=== PATIENT | male | born 1970 | race Caucasian/White ===

== ENCOUNTER → 2017-11-13 | Outpatient (CLI) | payer OTHER | LOC: FIMAGING 14:01 | PROVIDERS: ATTEND Family Medicine | DX: Z09 Encounter for follow-up examination after completed treatment for conditions other than malignant neoplasm (principal); R19.00 Intra-abdominal and pelvic swelling, mass and lump, unspecified site ==

== ENCOUNTER 2018-07-28 17:42 | Emergency (ER) | payer OTHER ==
--- NOTE | 2018-07-28 18:03 | EDPHY ---
H & P Stated Complaint: syncope, facial abrasions - Personal History Current Tetanus/Diphtheria Vaccine: Yes Current Tetanus Diphtheria and Acellular Pertussis (TDAP): Yes - Medical/Surgical History Hx Asthma: No Hx Chronic Respiratory Disease: No Hx Diabetes: No Hx Cardiac Disease: No Hx Renal Disease: No Hx Cirrhosis: No Hx Alcoholism: No Hx HIV/AIDS: No Hx Splenectomy or Spleen Trauma: No Other PMH: hyperlipidemia, SBO, - Social History Smoking Status: Never smoked Time Seen by Provider: 07/28/18 18:02 Constitutional: Initial Vital Signs Temperature (C) 36.5 C 07/28/18 17:46 Heart Rate 54 L 07/28/18 17:46 Respiratory Rate 16 07/28/18 17:46 Blood Pressure 103/56 L 07/28/18 17:46 O2 Sat (%) 97 07/28/18 17:46 O2 Delivery Mode Room Air Allergies/Adverse Reactions: No Known Allergies Allergy (Unverified 07/28/18 17:46) Home Medications: Medication Instructions Recorded Bisacodyl 07/28/18 Lipitor 07/28/18 Medical Decision Making Procedures: Procedure: Laceration repair with tissue adhesive Requested by Dr Contreras to perform wound closure Verbal consent was obtained from the patient. The chin laceration was anesthetized with 1% lidocaine with epinephrine achieving localized anesthesia. The wound was scrubbed and explored to its base with a gloved finger. No foreign body seen, no foreign bodies palpated. There were no deep structures involved. The wound was repaired with tissue adhesive. The procedure was performed by myself. Patient has been informed that scarring will occur, although efforts have been made to minimize this. (Rain Contreras) ED Course/Re-evaluation: CHIEF COMPLAINT: Syncope HISTORY OF PRESENT ILLNESS: This patient is a 48 year old male who presents following a syncopal event this evening. He has history of twisted bowels and small bowel obstruction as an and undergoes upper GI imaging every 4 years to monitor this. Today, he was prepping for his colonoscopy and took 4 Dulcolax at 3pm. Around 5pm, he was driving and noticed he was getting lightheaded, so he pulled over and stopped. He got out of the car and took about four steps, then had a syncopal event and fell forward onto his face. This was witnessed by his brother. He sustained several abrasions and a laceration to his face. He endorses some stiffness in his left wrist and hand, but denies any swelling or pain with ROM. The patient endorses history of syncope in the past associated with gastrointestinal discomfort. He denies fever, chest pain, shortness of breath, palpitations, vomiting, diarrhea, numbness or paresthesias in his extremities, or other associated symptoms. REVIEW OF SYSTEMS: A comprehensive 10 system review of systems is otherwise negative aside from elements mentioned in the history of present illness and medical decision making. PHYSICAL EXAM: HR, BP, O2 Sat, RR. Temp noted General Appearance: Alert, well hydrated, appropriate, and non-toxic appearing. Head: Atraumatic without scalp tenderness or obvious injury Eyes: Pupils equal, round, reactive to light and accommodation, EOMI, no trauma , no injection. Ears: Clear bilaterally, no perforation, normal landmarks Nose: Atraumatic, no rhinorrhea, clear. Throat: There is no erythema or exudates, no lesions, normal tonsils, mucus membranes moist. Neck: Supple, 2+ carotid upstroke, nontender, no lymphadenopathy. Respiratory: No retractions, no distress, no wheezes, and no accessory muscle use. Lungs are clear to auscultation bilaterally. Cardiovascular: Regular rate and rhythm, no murmurs, rubs, or gallops. Bilateral carotid, radial, dorsalis pedis, and posterior tibial pulses intact. Good capillary refill all extremities. Gastrointestinal: Abdomen is soft, nontender, non-distended, no masses, no rebound, no guarding, no peritoneal signs. Musculoskeletal: Normal active ROM of all extremities, atraumatic. Neurological: Alert, appropriate, and interactive. The patient has normal DTRs and non-focal cranial nerves, motor, sensory, and cerebellar exam. Skin: No rashes, good turgor, no nodules on palpation. Past medical history: Small bowel obstruction. Past surgical history: Remote history of bowel surgery as an . Family history: Noncontributory. Social history: Brother at bedside. . Lives in [place]. DIAGNOSTICS/PROCEDURES/CRITICAL CARE TIME: The 12 lead EKG was interpreted by myself. Sinus rhythm. Normal QT interval. See hard copy and/or "tracemaster" electronic copy for interpretation. DIFFERENTIAL DIAGNOSIS: The differential diagnosis for the patient's syncope included but was not limited to vasovagal syncope, arrhythmia, dehydration, cardiogenic causes, neurogenic causes, and blood loss. MEDICAL DECISION MAKIN48 y/o male presents with facial abrasions and a laceration to his chin sustained during a syncopal event this evening. Plan for EKG, labs including CBC , chemistries, troponin. Plan to administer 1L IV NS for symptom relief. Symptoms are consistent with vasovagal syncope. He is currently well-appearing. EKG shows normal sinus rhythm, normal QT interval. Laboratory studies largely unremarkable. 18:45 Reassessed. Discussed laboratory results. Plan to clean and repair the patient's facial injuries under standard ED protocol. Laceration repaired by LIO Larson. See procedure note above. Reassessed patient. He is feeling better. Plan to discharge patient home in good condition. Follow up and return precautions discussed. He will proceed with his colonoscopy as scheduled. He will return for suture removal in five days. He is comfortable with this plan. (Gary Contreras) - Data Points Laboratory Results: Laboratory Results 07/28/18 18:00 07/28/18 18:00 07/28/18 07/28/18 07/28/18 18:10 18:04 18:00 WBC RBC Hgb POC Hgb 15.0 gm/dL gm/dL (13.7-17.5) Hct POC Hct 44 % % (40-51) MCV MCH MCHC RDW Plt Count MPV Neut % (Auto) Lymph % (Auto) [place] % (Auto) Eos % (Auto) Baso % (Auto) Nucleat RBC Rel Count Absolute Neuts (auto) Absolute Lymphs (auto) Absolute Monos (auto) Absolute Eos (auto) Absolute Basos (auto) Absolute Nucleated RBC Immature Gran % Immature Gran # POC Sodium 140 mEq/L mEq/L (135-145) Sodium 136 mEq/L mEq/L (135-145) POC Potassium 3.1 mEq/L L mEq/L (3.3-5.0) Potassium 3.5 mEq/L mEq/L (3.3-5.0) POC Chloride 102 mEq/L mEq/L (97-110) Chloride 101 mEq/L mEq/L (97-110) Carbon Dioxide 23 mEq/l mEq/l (22-31) Anion Gap 12 mEq/L mEq/L (8-16) POC BUN 15 mg/dL mg/dL (7-23) BUN 15 mg/dL mg/dL (7-23) Creatinine 1.0 mg/dL mg/dL (0.7-1.3) POC Creatinine 1.1 mg/dL mg/dL (0.7-1.3) Estimated GFR > 60 Glucose 123 mg/dL H mg/dL (70-100) POC Glucose 128 mg/dL H mg/dL (70-100) Calcium 9.5 mg/dL mg/dL (8.5-10.4) POC Troponin I 0.01 ng/mL ng/mL (0.00-0.08) 07/28/18 18:00 WBC 10.39 10^3/uL H 10^3/uL (3.80-9.50) RBC 4.52 10^6/uL 10^6/uL (4.40-6.38) Hgb 14.7 g/dL g/dL (13.7-17.5) POC Hgb Hct 42.0 % % (40.0-51.0) POC Hct MCV 92.9 fL fL (81.5-99.8) MCH 32.5 pg pg (27.9-34.1) MCHC 35.0 g/dL g/dL (32.4-36.7) RDW 12.1 % % (11.5-15.2) Plt Count 277 10^3/uL 10^3/uL (150-400) MPV 9.3 fL fL (8.7-11.7) Neut % (Auto) 43.4 % % (39.3-74.2) Lymph % (Auto) 39.8 % % (15.0-45.0) [place] % (Auto) 13.0 % % (4.5-13.0) Eos % (Auto) 2.7 % % (0.6-7.6) Baso % (Auto) 0.7 % % (0.3-1.7) Nucleat RBC Rel Count 0.0 % % (0.0-0.2) Absolute Neuts (auto) 4.51 10^3/uL 10^3/uL (1.70-6.50) Absolute Lymphs (auto) 4.14 10^3/uL H 10^3/uL (1.00-3.00) Absolute Monos (auto) 1.35 10^3/uL H 10^3/uL (0.30-0.80) Absolute Eos (auto) 0.28 10^3/uL 10^3/uL (0.03-0.40) Absolute Basos (auto) 0.07 10^3/uL 10^3/uL (0.02-0.10) Absolute Nucleated RBC 0.00 10^3/uL 10^3/uL (0-0.01) Immature Gran % 0.4 % % (0.0-1.1) Immature Gran # 0.04 10^3/uL 10^3/uL (0.00-0.10) POC Sodium Sodium POC Potassium Potassium POC Chloride Chloride Carbon Dioxide Anion Gap POC BUN BUN Creatinine POC Creatinine Estimated GFR Glucose POC Glucose Calcium POC Troponin I Medications Given: Discontinued Medications Sodium Chloride (Ns) 500 mls @ 1,000 mls/hr IV EDNOW ONE PRN Reason: Protocol Stop: 07/28/18 18:33 Last Admin: 07/28/18 18:23 Dose: 500 mls Sodium Chloride (Ns) 1,000 mls @ 0 mls/hr IV ONCE ONE PRN Reason: Wide Open Stop: 07/28/18 18:06 Last Admin: 07/28/18 18:06 Dose: Not Given Point of Care Test Results: Chemistry 07/28/18 07/28/18 18:10 18:04 POC Sodium 140 mEq/L mEq/L (135-145) POC Potassium 3.1 mEq/L L mEq/L (3.3-5.0) POC Chloride 102 mEq/L mEq/L (97-110) POC BUN 15 mg/dL mg/dL (7-23) POC Creatinine 1.1 mg/dL mg/dL (0.7-1.3) POC Glucose 128 mg/dL H mg/dL (70-100) POC Troponin I 0.01 ng/mL ng/mL (0.00-0.08) ISTAT H&H 07/28/18 18:10 POC Hgb 15.0 gm/dL gm/dL (13.7-17.5) POC Hct 44 % % (40-51) Departure - Departure Disposition: Home, Routine, Self-Care Clinical Impression: Vasovagal syncope Facial abrasion Qualifiers: Encounter type: initial encounter Qualified Code(s): S00.81XA - Abrasion of other part of head, initial encounter Facial laceration Qualifiers: Encounter type: initial encounter Qualified Code(s): S01.81XA - Laceration without foreign body of other part of head, initial encounter Condition: Good Instructions: Care For Your Stitches (ED), Syncope (ED), Facial Laceration (ED) Additional Instructions: 1. Return to the emergency department for suture removal in 5 days. 2. You may proceed with your bowel prep and colonoscopy as planned. 3. If you feel lightheaded again, please sit or lie down until you feel better. 4. Stay well hydrated. 5. Return to the emergency department if you develop chest pain, shortness of breath, fever, or other worsening of condition or further concerns. Referrals: Savage Hooker, DO [Primary Care Provider] - As per Instructions Report Scribed for: Gary Contreras Report Scribed by: Merry Johnson Date of Report: 07/28/18 Time of Report: 18:02
[2018-07-28] MEDS ORDERED: NS 500 ML IV ONE (18:04)
[2018-07-28] MEDS ORDERED: NS 1,000 ML IV ONE (18:05)
[2018-07-28 18:23] LABS: PLATELET COUNT 277 10^3/uL (150-400)
[2018-07-28] MEDS ORDERED: SKIN ADHESIVE (DERMABOND) 1 EACH TP ONE (18:53)
[2018-07-28 19:16] VITALS: BP 129/95
--- NOTE | 2018-07-28 23:05 | CPEKG ---
Test Reason : OPEN Blood Pressure : / mmHG Vent. Rate : 075 BPM Atrial Rate : 076 BPM P-R Int : 181 ms QRS Dur : 093 ms QT Int : 412 ms P-R-T Axes : 083 055 005 degrees QTc Int : 461 ms Sinus rhythm Consider RVH or posterior infarct Confirmed by Arnold Perez ([id number]) on 07/28/2018 11:04:44 PM Referred By: Confirmed By:Arnold Perez
== END 2018-07-28 19:16 | disposition home or self-care (01) ==
PROC: 0HQ1XZZ Repair Face Skin, External Approach (ICD-10-PCS; principal; 2018-07-28)
DX: S01.81XA Laceration without foreign body of other part of head, initial encounter (principal); S00.81XA Abrasion of other part of head, initial encounter; R55 Syncope and collapse; W01.198A Fall on same level from slipping, tripping and stumbling with subsequent striking against other object, initial encounter; Y92.9 Unspecified place or not applicable; Y99.9 Unspecified external cause status; Y93.9 Activity, unspecified
CPT/HCPCS: 82435-PO; 82565-PO; 82947-PO; 84132-PO; 84295-PO; 84484-PO; 84520-PO; 85014-PO